=== PATIENT | female | born 1970 | race Caucasian/White ===

== ENCOUNTER 2018-06-20 16:14 | Emergency (ER) | payer MEDICAID ==
[~2018-06-20] VITALS: Ht 157.5 cm; Wt 93.4 kg
[2018-06-20 17:03] VITALS: Ht 157.5 cm; Wt 93.4 kg
[2018-06-20 19:45] VITALS: BP 155/84
== END 2018-06-20 19:45 | disposition home or self-care (01) ==
LOC: ED 16:14
DX: S93.601A Unspecified sprain of right foot, initial encounter (principal); Z88.0 Allergy status to penicillin; W10.9XXA Fall (on) (from) unspecified stairs and steps, initial encounter; Y93.89 Activity, other specified; Y92.89 Other specified places as the place of occurrence of the external cause; Y99.8 Other external cause status

== ENCOUNTER 2019-02-09 16:58 | Emergency (ER) | payer MEDICAID ==
[~2019-02-09] VITALS: Ht 157.5 cm; Wt 91.2 kg
[2019-02-09 17:11] VITALS: BP 131/73; Ht 157.5 cm; Wt 91.2 kg
== END 2019-02-09 18:48 | disposition home or self-care (01) ==
LOC: ED 16:58
DX: S09.8XXA Other specified injuries of head, initial encounter (principal); M54.2 Cervicalgia; M54.5 Low back pain; Z90.89 Acquired absence of other organs; Z88.0 Allergy status to penicillin; W20.8XXA Other cause of strike by thrown, projected or falling object, initial encounter; Y93.89 Activity, other specified; Y92.89 Other specified places as the place of occurrence of the external cause; Y99.8 Other external cause status